=== PATIENT | female | born 1995 | race African-American/Black ===

== ENCOUNTER 2018-11-13 15:27 | Inpatient (IN) ==
[2018-11-13] MEDS: LACTATED RINGERS 1,000 ML IV SCH (16:00)
[2018-11-13] MEDS ORDERED: ONDANSETRON 4 MG/2 ML VIAL IV PRN (16:24)
[2018-11-13 16:42] LABS: Basophils % 0.3 % (0.0-0.8); Eosinophils # 0.1 10*3/uL (0.0-0.87); Eosinophils % 0.8 % (0.00-10.9); Hematocrit 35.6 VOL% (35.7-47.0); Hemoglobin 11.7 GM/DL (12.0-16.0); Immature Granulocytes % 0.4 %; Immature Granulocytes Absolute 0.03 #; Lymphocytes # 1.8 10*3/uL (1.4-4.0); Lymphocytes % 22.8 % (21.3-54.2); Mean Corpuscular HGB Conc 32.9 GM/DL (32-36); Mean Corpuscular Hemoglobin 31 PG (27-34); Mean Corpuscular Volume 94.7 FL (87-102); Mean Platelet Volume 9.7 FL (9.6-12.0); Monocytes # 1.1 10*3/uL (0.11-0.8); Monocytes % 13.8 % (1.7-12.7); Neutrophils # 4.7 10*3/uL (1.4-7.4); Neutrophils % 61.9 % (38.7-73.9); Platelet Count 361 T/CUMM (130-400); Red Blood Count 3.76 MC/CUMM (3.8-5.5); Red Cell Distribution Width 12.9 % (9.3-17.3); White Blood Count 7.7 T/CUMM (4-12)
[2018-11-13] MEDS: AMPICILLIN INJ 2,000 MG in SODIUM CHLORIDE 0.9% 100 ML IV SCH ×2 (16:42→22:30)
[2018-11-14] MEDS ORDERED: ALUMINUM/MAGNES/SIMETH MAX STR 30 ML UDCUP PO PRN (00:42)
[2018-11-14] MEDS: OXYTOCIN/LR 20 UNIT/1,000 ML BAG IV SCH (04:00)
[2018-11-14] MEDS: AMPICILLIN INJ 2,000 MG in SODIUM CHLORIDE 0.9% 100 ML IV SCH ×2 (05:30→11:49)
[2018-11-14] MEDS: BUTORPHANOL 2 MG/ML VIAL IV PRN ×2 (05:41→09:40)
[2018-11-14] MEDS: LACTATED RINGERS 1,000 ML IV SCH ×2 (07:46)
[2018-11-14] MEDS ORDERED: TRANEXAMIC ACID 1,000 MG/10 ML VIAL ONE (13:26)
[2018-11-14] MEDS ORDERED: miSOPROStol 200 MCG TABLET ONE (13:26)
[2018-11-14] MEDS ORDERED: OXYTOCIN/LR 20 UNIT/1,000 ML BAG IV ONE ×2 (13:26→14:05)
[2018-11-14] MEDS ORDERED: METHYLERGONOVINE 0.2 MG/1 ML AMP ONE (13:27)
[2018-11-14] MEDS ORDERED: CARBOPROST TROMETHAMINE 250 MCG/ML AMP IM ONE (13:27)
[2018-11-14] MEDS ORDERED: LIDOCAINE 1% 50 ML VIAL ONE (13:27)
[2018-11-14] MEDS ORDERED: miSOPROStol 200 MCG TABLET RECTAL ONE (13:55)
[2018-11-14] MEDS ORDERED: BENZOCAINE 20%/MENTHOL 0.5% SPRAY 56 GM CAN TOP PRN (14:05)
[2018-11-14] MEDS ORDERED: HYDROCORTISONE 2.5% RECTAL CREAM 30 GM TUBE TOP PRN (14:05)
[2018-11-14] MEDS ORDERED: WITCH HAZEL PADS 100/JAR TOP PRN (14:05)
[2018-11-14] MEDS ORDERED: BISACODYL 10 MG SUPP RECTAL PRN (14:05)
[2018-11-14] MEDS ORDERED: LANOLIN 50% CREAM 0.3 OZ TUBE TOP PRN (14:05)
[2018-11-14] MEDS ORDERED: MEASLES/MUMPS/RUBELLA VACCINE 0.5 ML VIAL SUBCUT ONE (14:05)
[2018-11-14] MEDS ORDERED: ACETAMINOPHEN 325 MG TABLET PO PRN (14:05)
[2018-11-14] MEDS ORDERED: ONDANSETRON 4 MG/2 ML VIAL IV PRN (14:05)
[2018-11-14] MEDS ORDERED: DIPH/TET/ACEL PERT BOOSTER VACCINE 0.5 ML VIAL IM ONE (14:05)
[2018-11-14] MEDS ORDERED: RHO(D) IMMUNE GLOBULIN 300 MCG SYRINGE IM ONE (14:05)
[2018-11-14] MEDS ORDERED: IBUPROFEN 800 MG TABLET PO PRN (14:05)
[2018-11-14] MEDS ORDERED: oxyCODONE/ACETAMINOPHEN 5-325 MG TABLET PO PRN ×2 (14:05)
[2018-11-14] MEDS ORDERED: BENZOCAINE/MENTHOL LOZENGE 18/BOX PO PRN (19:58)
[2018-11-14] MEDS: DOCUSATE SODIUM 100 MG CAPSULE PO SCH (20:05)
[2018-11-15 06:46] LABS: Basophils % 0.2 % (0.0-0.8); Eosinophils # 0.1 10*3/uL (0.0-0.87); Eosinophils % 0.6 % (0.00-10.9); Hematocrit 29.3 VOL% (35.7-47.0); Hemoglobin 9.6 GM/DL (12.0-16.0); Immature Granulocytes % 0.4 %; Immature Granulocytes Absolute 0.07 #; Lymphocytes % 19.1 % (21.3-54.2); Mean Corpuscular HGB Conc 32.8 GM/DL (32-36); Mean Corpuscular Hemoglobin 31 PG (27-34); Mean Corpuscular Volume 94.8 FL (87-102); Mean Platelet Volume 9.7 FL (9.6-12.0); Monocytes # 1.7 10*3/uL (0.11-0.8); Monocytes % 11.1 % (1.7-12.7); Neutrophils # 10.7 10*3/uL (1.4-7.4); Neutrophils % 68.6 % (38.7-73.9); Platelet Count 309 T/CUMM (130-400); Red Blood Count 3.09 MC/CUMM (3.8-5.5); Red Cell Distribution Width 13.2 % (9.3-17.3); White Blood Count 15.6 T/CUMM (4-12)
[2018-11-15] MEDS: DOCUSATE SODIUM 100 MG CAPSULE PO SCH ×2 (10:19→21:59)
[2018-11-15] MEDS: AMPICILLIN INJ 2,000 MG in SODIUM CHLORIDE 0.9% 100 ML IV SCH ×2 (15:28→15:29)
[2018-11-15] MEDS: OXYTOCIN/LR 20 UNIT/1,000 ML BAG IV SCH (15:31)
[2018-11-15] MEDS: LACTATED RINGERS 1,000 ML IV SCH ×2 (15:32→15:33)
[2018-11-15] MEDS: MAGNESIUM HYDROXIDE SUSP 30 ML UDCUP PO PRN (16:30)
[2018-11-16 07:17] VITALS: BP 128/66
[2018-11-16] MEDS: MAGNESIUM HYDROXIDE SUSP 30 ML UDCUP PO PRN (09:50)
[2018-11-16] MEDS: DOCUSATE SODIUM 100 MG CAPSULE PO SCH (09:50)
== END 2018-11-16 12:10 | disposition home or self-care (01) | DRG 560 ==
LOC: N.LDOUT 15:27 → N.LD 15:31 → N.OB 11-14 16:22
PROVIDERS: ADMIT Obstetrics & Gynecology; ATTEND Obstetrics & Gynecology

== ENCOUNTER 2021-05-27 00:32 | Inpatient (IN) ==
[2021-05-27] MEDS ORDERED: ONDANSETRON 4 MG/2 ML VIAL IV PRN (00:45)
[2021-05-27] MEDS ORDERED: BUTORPHANOL 2 MG/ML VIAL IV PRN (00:45)
[2021-05-27] MEDS ORDERED: LACTATED RINGERS 1,000 ML IV PRN (00:45)
[2021-05-27 01:03] LABS: Basophils % 0.3 % (0.0-0.8); Eosinophils # 0.3 10*3/uL (0.0-0.87); Eosinophils % 3.6 % (0.00-10.9); Hematocrit 35.4 VOL% (35.7-47.0); Hemoglobin 11.6 GM/DL (12.0-16.0); Immature Granulocytes % 0.3 %; Immature Granulocytes Absolute 0.03 #; Lymphocytes # 2.8 10*3/uL (1.4-4.0); Lymphocytes % 30.1 % (21.3-54.2); Mean Corpuscular HGB Conc 32.8 GM/DL (32-36); Mean Corpuscular Volume 92.9 FL (87-102); Monocytes % 12.9 % (1.7-12.7); Neutrophils % 52.8 % (38.7-73.9); Platelet Count 376 T/CUMM (130-400); Red Blood Count 3.81 MC/CUMM (3.8-5.5); Red Cell Distribution Width 13.6 % (9.3-17.3); White Blood Count 9.2 T/CUMM (4-12)
[2021-05-27 02:07] LABS: Alanine Aminotransferase 9 U/L (13-56); Albumin 2.8 G/DL (3.4-5.0); Alkaline Phosphatase 158 U/L (45-117); Aspartate Amino Transferase 14 U/L (0-37); Bilirubin,Total < 0.39 MG/DL (0.20-1.00); Blood Urea Nitrogen 8 MG/DL (7-18); Calcium 8.8 MG/DL (8.5-10.1); Carbon Dioxide 20 MMOL/L (21-32); Estimated Glom Filtration Rate 172 ML/MIN; Glucose 89 MG/DL (74-106); Sodium 136 MMOL/L (136-145); Total Protein 7.6 G/DL (6.4-8.2)
[2021-05-27 08:31] LABS: Bacteria,Urine Occasional /HPF (Few); Bilirubin,Urine Negative (Negative); Blood, Urine Negative (Negative); Glucose,Urine (UA) Negative (Negative); Ketones,Urine Negative (Negative); Nitrite,Urine Negative (Negative); Protein,Urine Negative; RBC,Urine 1 /HPF (0-4); Squamous Epithelial Cell,Urine Occasional /HPF (0-10); Urine Appearance CLEAR (Clear); Urine Color Straw (Yellow); Urine Specific Gravity 1.008 (1.001-1.035); Urine Urobilinogen < 2.0 EU/DL (0.2-1.0)
[2021-05-27] MEDS ORDERED: OXYTOCIN/LR 20 UNIT/1,000 ML BAG IV ONE ×2 (10:36→21:04)
[2021-05-27] MEDS ORDERED: miSOPROStoL 200 MCG TABLET ONE (10:36)
[2021-05-27] MEDS ORDERED: TRANEXAMIC ACID 1,000 MG/10 ML VIAL ONE (10:36)
[2021-05-27] MEDS ORDERED: METHYLERGONOVINE 0.2 MG/1 ML AMP ONE (10:36)
[2021-05-27] MEDS ORDERED: CARBOPROST TROMETHAMINE 250 MCG/ML AMP IM ONE (10:36)
[2021-05-27] MEDS ORDERED: SODIUM CHLORIDE 0.9% 0 ML IV ONE (10:37)
[2021-05-27] MEDS: MEPERIDINE 50 MG/1 ML VIAL IV PRN ×2 (11:48→14:30)
[2021-05-27] MEDS ORDERED: OXYTOCIN/LR 20 UNIT/1,000 ML BAG IV SCH (12:30)
[2021-05-27 16:47] LABS: Cord Arterial Blood HCO3 23.1 MMOL/L
[2021-05-27 16:49] LABS: Cord Venous Blood HCO3 19.7 MMOL/L; Cord Venous Blood PCO2 36.9 MMHG; Cord Venous Blood PO2 27.2 MMHG
[2021-05-27] MEDS ORDERED: BISACODYL 10 MG SUPP RECTAL PRN (21:04)
[2021-05-27] MEDS ORDERED: HYDROCORTISONE 2.5% RECTAL CREAM 30 GM TUBE TOP PRN (21:04)
[2021-05-27] MEDS ORDERED: oxyCODONE/ACETAMINOPHEN 5-325 MG TABLET PO PRN ×2 (21:04)
[2021-05-27] MEDS ORDERED: DIPH/TET/ACEL PERT BOOSTER VACCINE 0.5 ML VIAL IM ONE (21:04)
[2021-05-27] MEDS ORDERED: MEASLES/MUMPS/RUBELLA VACCINE 0.5 ML VIAL SUBCUT ONE (21:04)
[2021-05-27] MEDS ORDERED: BENZOCAINE 20%/MENTHOL 0.5% SPRAY 56 GM CAN TOP PRN (21:04)
[2021-05-27] MEDS ORDERED: WITCH HAZEL PADS 100/JAR TOP PRN (21:04)
[2021-05-27] MEDS ORDERED: ACETAMINOPHEN 325 MG TABLET PO PRN (21:04)
[2021-05-27] MEDS ORDERED: RHO(D) IMMUNE GLOBULIN 300 MCG SYRINGE IM ONE (21:04)
[2021-05-27] MEDS ORDERED: LANOLIN 50% CREAM 0.3 OZ TUBE TOP PRN (21:04)
[2021-05-28 05:50] LABS: Basophils % 0.2 % (0.0-0.8); Eosinophils # 0.1 10*3/uL (0.0-0.87); Eosinophils % 0.6 % (0.00-10.9); Hematocrit 35.4 VOL% (35.7-47.0); Hemoglobin 11.7 GM/DL (12.0-16.0); Immature Granulocytes % 0.5 %; Immature Granulocytes Absolute 0.08 #; Lymphocytes # 2.6 10*3/uL (1.4-4.0); Lymphocytes % 16.1 % (21.3-54.2); Mean Corpuscular HGB Conc 33.1 GM/DL (32-36); Mean Corpuscular Volume 92.7 FL (87-102); Mean Platelet Volume 9.3 FL (9.6-12.0); Monocytes % 10.1 % (1.7-12.7); Neutrophils % 72.5 % (38.7-73.9); Platelet Count 392 T/CUMM (130-400); Red Blood Count 3.82 MC/CUMM (3.8-5.5); Red Cell Distribution Width 13.2 % (9.3-17.3); White Blood Count 15.9 T/CUMM (4-12)
[2021-05-28] MEDS: DOCUSATE SODIUM 100 MG CAPSULE PO SCH ×2 (08:41→20:47)
[2021-05-28] MEDS: IBUPROFEN 800 MG TABLET PO PRN (15:02)
[2021-05-29] MEDS: IBUPROFEN 800 MG TABLET PO PRN (01:00)
[2021-05-29] MEDS: DOCUSATE SODIUM 100 MG CAPSULE PO SCH (08:32)
[2021-05-29 08:47] VITALS: BP 122/73
== END 2021-05-29 12:05 | disposition home or self-care (01) | DRG 807 ==
LOC: N.LDOUT 00:32 → N.LD 00:40 → N.OB 20:40
PROVIDERS: ADMIT Obstetrics & Gynecology; ATTEND Obstetrics & Gynecology